=== PATIENT | female | born 1955 | race Two or more races ===

== ENCOUNTER → 2022-04-11 | Outpatient (CLI) | payer OTHER ==
[2022-04-11 13:56] LABS: Urine Blood Negative /uL (Negative)
== END | disposition home or self-care (01) ==
LOC: LAB 13:13
PROVIDERS: ATTEND Family Medicine
DX: R30.0 Dysuria (principal); M54.50 Low back pain, unspecified
CPT/HCPCS: 81003; 87086

== ENCOUNTER 2023-02-01 15:31 | Inpatient (IN) | payer OTHER ==
[~2023-02-01] VITALS: Ht 160 cm; Wt 71.5 kg
[2023-02-01 17:00] VITALS: BP 128/83; PULSE 101; RESP 18; TEMP 98.7; O2SAT 96
[2023-02-01 17:37] VITALS: PULSE 101; RESP 18; O2SAT 96
[2023-02-01] MEDS ORDERED: ROSU1TAB12 PO (17:53)
[2023-02-01] MEDS ORDERED: NITROGLYCERIN 0.4 MG SL TAB SL PRN ×2 (18:00)
[2023-02-01] MEDS ORDERED: ACETAMINOPHEN 650 mg PER 20.3 mL UD PO PRN (18:00)
[2023-02-01] MEDS ORDERED: MORPHINE SULFATE INJ 2 MG/ml SYRG IV PRN ×3 (18:00)
[2023-02-01] MEDS ORDERED: ONDANSETRON HCL 4 MG/2 ML VIAL IV PRN (18:00)
[2023-02-01] MEDS ORDERED: HYDROcodone-ACET 5/325MG TAB PO PRN (18:00)
[2023-02-01] MEDS ORDERED: LORazepam 2MG/ML-1ML VIAL IV ONE (18:30)
[2023-02-01] MEDS: ASPirin 81 mg TAB PO SCH (19:50)
[2023-02-01 20:00] VITALS: BP 117/65; PULSE 100; PULSE 87; RESP 18; TEMP 97.6; O2SAT 96
[2023-02-01] MEDS: ATORVASTATIN 20 MG TAB PO SCH (20:57)
[2023-02-01 23:23] VITALS: BP 117/65; PULSE 87; RESP 18; TEMP 97.6; O2SAT 96
[2023-02-02] VITALS (7 sets, daily range): BP systolic 104–126; BP diastolic 55–72; PULSE 67–92; RESP 16–20; TEMP 98.1–98.3; O2SAT 94–96
[2023-02-02] MEDS ORDERED: LORazepam 2MG/ML-1ML VIAL IV ONE (07:30)
[2023-02-02] MEDS: ASPirin 81 mg TAB PO SCH (11:07)
[2023-02-02 15:41] LABS: Basophils # (auto) 0 10 ^3/uL (0-0.2); Basophils % (auto) 0.5 % (0.0-2.0); Eosinophils # (auto) 0 10 ^3/uL (0-0.8); Eosinophils % (auto) 0.4 % (0.0-7.0); Hematocrit 39.3 % (36.0-46.0); Hemoglobin 12.9 g/dL (12.2-16.2); Lymphocytes # (auto) 1.7 10 ^3/uL (0.4-5.4); Lymphocytes % (auto) 25.4 % (10.0-50.0); Mean Corpuscular Hemoglobin 30.8 pg (28.0-32.0); Mean Corpuscular Hgb Conc. 32.9 g/dL (32.0-36.0); Mean Corpuscular Volume 93.7 fL (80.0-100.0); Monocytes # (auto) 0.4 10 ^3/uL (0-1.3); Monocytes % (auto) 5.9 % (0.0-12.0); Neutrophils # (auto) 4.5 10 ^3/uL (1.6-8.6); Neutrophils % (auto) 67.8 % (37.0-80.0); Nucleated Red Blood Cells % 0.1 %; Red Blood Cells 4.19 10^6/uL (4.0-5.20); Red Cell Distribution Width 14.5 % (11.8-14.3); White Blood Cell 6.7 10^3/uL (4.4-10.8)
[2023-02-02 15:53] LABS: Chloride 107 mmol/L (98-107); Potassium 3.9 mmol/L (3.5-5.1); Sodium 140 mmol/L (136-145)
[2023-02-02 15:54] LABS: Anion Gap 7 (5-15); Calcium 8.9 mg/dL (8.5-10.1); Carbon Dioxide 26 mmol/L (20-30)
[2023-02-02 15:59] LABS: Glucose 132 mg/dL (74-106)
[2023-02-02 16:10] LABS: Folate (Folic Acid) 11.24 ng/mL (>5.38)
[2023-02-02 16:11] LABS: Free T4 (Free Thyroxine) 0.81 ng/dL (0.89-1.76)
[2023-02-02] MEDS ORDERED: methylPREDNISolone SOD SUCC 125 MG/2 ML VL IV ONE (16:15)
[2023-02-02 16:49] LABS: BUN/Creatinine Ratio 16.1 (10.0-20.0); Blood Urea Nitrogen 15 mg/dL (9-23)
[2023-02-02 16:53] LABS: COVID19 ANTIGEN SOFIA FIA NEGATIVE (NEGATIVE)
[2023-02-02 16:54] LABS: Rapid Influenza A Negative (Negative); Rapid Influenza B Negative (Negative)
[2023-02-02 17:33] LABS: Urine Bacteria NONE SEEN /hpf (None Seen); Urine Blood Negative /uL (Negative); Urine Clarity Clear (Clear); Urine Color Colorless (Yellow); Urine Protein, UAD Negative (Negative); Urine Specific Gravity 1.014 (1.001-1.035); Urine Urobilinogen Normal (Negative); Urine WBC 2 /hpf (0 - 5); Urine pH 6.5 (5.0-8.0)
[2023-02-02] MEDS: ATORVASTATIN 20 MG TAB PO SCH (22:06)
[2023-02-03 05:00] VITALS: BP 114/51; PULSE 64; RESP 17; TEMP 97.8; O2SAT 93
[2023-02-03 08:00] VITALS: PULSE 70
[2023-02-03 09:00] VITALS: BP 103/55; PULSE 80; RESP 18; TEMP 97.8; O2SAT 94
[2023-02-03] MEDS: ASPirin 81 mg TAB PO SCH (09:27)
[2023-02-03] MEDS ORDERED: predniSONE 20 MG TAB PO ONE (12:30)
[2023-02-03] MEDS ORDERED: FAMO-161 PO (12:33)
[2023-02-03] MEDS ORDERED: PRED20TA2 PO (12:33)
[2023-02-03] MEDS ORDERED: ARTISOL13 EACHEYE (12:33)
[2023-02-03 13:00] VITALS: BP 104/70; PULSE 74; RESP 19; TEMP 98.5; O2SAT 94
== END 2023-02-03 16:58 | disposition home or self-care (01) | DRG 74 ==
LOC: TELE-CENTR 16:55
PROVIDERS: ADMIT Internal Medicine; ATTEND Hospitalist
DX: G51.0 Bell's palsy (principal); E11.9 Type 2 diabetes mellitus without complications; K21.9 Gastro-esophageal reflux disease without esophagitis; E78.5 Hyperlipidemia, unspecified; Z20.822 Contact with and (suspected) exposure to COVID-19; Z80.1 Family history of malignant neoplasm of trachea, bronchus and lung; Z82.49 Family history of ischemic heart disease and other diseases of the circulatory system; Z83.3 Family history of diabetes mellitus; Z90.710 Acquired absence of both cervix and uterus
CPT/HCPCS: 36415; 70551; 80048; 81001; 82607; 82746; 84439; 84443; 85025; 86141; 87081; 87086; 87426; 87804; 93306; 97163; G0378